=== PATIENT | male | born 1950 ===

== ENCOUNTER 2021-12-18 11:58 | Emergency (ER) | payer OTHER ==
[~2021-12-18] VITALS: Ht 180.3 cm; Wt 86.2 kg
[2021-12-18] MEDS ORDERED: SYNTHROID175 MCG PO (12:09)
[2021-12-18] MEDS ORDERED: LOSARTAN-HCTZ1 EAC1 PO (12:09)
[2021-12-18] MEDS ORDERED: SIMVASTATIN40 MG PO (12:09)
[2021-12-18] MEDS ORDERED: CELEBREX100 MG PO (13:37)
[2021-12-18] MEDS ORDERED: GABAPENTIN300 M2 PO (13:37)
[2021-12-18] MEDS ORDERED: VALACYCLOVIR1000 MG PO (13:37)
== END 2021-12-18 14:23 ==
LOC: ER 11:58
DX: B02.9 Zoster without complications (principal); I10 Essential (primary) hypertension

== ENCOUNTER 2022-12-22 07:08 | Inpatient (IN) | payer OTHER ==
[~2022-12-22] VITALS: Ht 180.3 cm; Wt 87.5 kg
[~2022-12-22 07:08] MED LIST: CELEBREX100 MG PO; GABAPENTIN300 M2 PO; LOSARTAN-HCTZ1 EAC1 PO; SIMVASTATIN40 MG PO; SYNTHROID175 MCG PO; VALACYCLOVIR1000 MG PO
[2022-12-22] MEDS ORDERED: PRILOSEC OTC20 MG (07:25)
== END 2022-12-24 15:58 | disposition home or self-care (01) | DRG 660 ==
LOC: ER 07:08 → SURH 18:15
PROVIDERS: Urology; ADMIT Specialist; ATTEND Specialist
PROC: BW21ZZZ Computerized Tomography (CT Scan) of Abdomen and Pelvis (ICD-10-PCS; 2022-12-22)
PROC: BT1DYZZ Fluoroscopy of Right Kidney, Ureter and Bladder using Other Contrast (ICD-10-PCS; 2022-12-23)
PROC: 0TC68ZZ Extirpation of Matter from Right Ureter, Via Natural or Artificial Opening Endoscopic (ICD-10-PCS; 2022-12-23)
PROC: 0T768DZ Dilation of Right Ureter with Intraluminal Device, Via Natural or Artificial Opening Endoscopic (ICD-10-PCS; principal; 2022-12-23 07:00)
DX: N13.5 Crossing vessel and stricture of ureter without hydronephrosis (principal); N17.9 Acute kidney failure, unspecified; R33.9 Retention of urine, unspecified
CPT/HCPCS: 51610; S2070

== ENCOUNTER 2022-12-28 06:41 | Outpatient (CLI) | payer OTHER ==
[~2022-12-28 06:41] MED LIST changes: +PRILOSEC OTC20 MG
== END 2022-12-28 06:43 | disposition home or self-care (01) ==
LOC: LAB 06:41
DX: N20.1 Calculus of ureter (principal); D62 Acute posthemorrhagic anemia